=== PATIENT | male | born 1970 | race Caucasian/White ===

== ENCOUNTER → 2023-11-24 09:01 | Outpatient (BNVA) | payer OTHER, SELFPAY | PROVIDERS: Visit Provider Podiatrist Foot & Ankle Surgery | DX: M21.372 Foot drop, left foot (principal); M66.372 Spontaneous rupture of flexor tendons, left ankle and foot | CPT/HCPCS: 99204 ==

== ENCOUNTER 2023-12-13 11:00 | Outpatient (CLI) | payer OTHER, SELFPAY ==
--- NOTE | 2023-12-13 13:45 | MR_ITS ---
WS: [id number] MRI LEFT ANKLE WITHOUT CONTRAST. COMPARISON: None Multiplanar, multisequence imaging is performed without contrast. Mild narrowing of the tibiotalar joint space. Slight loss of the normal cartilage along the talar dom e. There is no osteochondral lesion. No marrow edema. Subchondral cystic changes are noted in the sub talar region of the calcaneus. Normal appearance of the talus. Achilles tendon and the plantar fascia are negative. There is no significant amount of increased sign al in the sinus Tarsi. Mild thinning of the cervical ligament within the sinus Tarsi. May be chronica lly or partially torn. There is no fibrosis. There is no fluid. Peroneal longus and brevis tendons normal position. There is a small amount of increased T2 signal in the distal peroneal brevis tendon but does appear to be intact. The tibialis posterior tendon and th e flexor digitorum longus and flexor hallucis longus muscles and tendons are negative. Abnormal appearance of the anterior tibialis tendon. There is marked thickening of the tendon beginni ng at about the level of the tibiotalar joint. Tendon measures 10 mm in diameter. Distal to the midfo ot the tendon is not identified as a normal separate structure. Similar appearance of the extensor camejo llucis longus tendon although the tendon is not as large as the anterior tibialis tendon. The extenso r digitorum longus tendon appears intact still. Deltoid ligament and the anterior talofibular ligament and the posterior talofibular ligaments are id entified. No tear is identified within the anterior talofibular ligament. There is a small loose body just posterior to the anterior talofibular ligament. MR/MR ankle LT wo con* [id number] IMPRESSION: 1. Markedly thickened and abnormal signal in the anterior tibialis tendon at t he level of the tibiotalar joint. The distal tendon cannot be traced to the fir st metatarsal or the cuneiform. Highly suspicious for complete tear. If not com plete tear high-grade tear. This is probably chronic as there is not a lot of f luid in the tendon sheath but the sheath is markedly thickened. 2. The extensor hallucis longus tendon is also abnormal and possibly torn also at the level of the tibiotalar joint. 3. No marrow edema or fractures. 4. Flexor tendons are negative. 5. Small caliber and thinning of the cervical ligament in the sinus Tarsi. No fluid or fibrosis.
--- NOTE | 2023-12-13 14:30 | MR_ITS ---
WS: [id number] MRI LEFT FOOT WITHOUT CONTRAST. COMPARISON: None Multiplanar, multisequence imaging is performed without contrast. No fracture or marrow edema. Bands of the Lisfranc ligament appear intact. There is no fluid. No wide angella of the Lisfranc articulation. Normal tarsal metatarsal alignment. Several hammertoe deformities are noted. Mild narrowing of the first metatarsophalangeal joint and tiny erosions. The distal anterior tibialis tendon is identified as it inserts onto the base of the first metatarsal . The proximal anterior tibial tendon over the midfoot demonstrates marked thickening as described in the MRI ankle. Visually the majority of the tendon is identified along its course. The marked thicke angella described on the MRI of the ankle may be severe tendinopathy and/or partial tear with fibrosis. The extensor hallucis longus distal to the midfoot becomes a more normal caliber at the level of the proximal first metatarsal with a normal-appearing insertion at the base of the first phalanx. MR/MR foot LT wo con* [id number] IMPRESSION: 1. No fractures or marrow edema. 2. Normal Lisfranc ligament. 3. Anterior tibialis tendon: The tendon is identified extending distally from the marked thickening described in the hindfoot on the recent MRI ankle. The di stal tendon appears to be intact and inserts at the base of the first metatarsa l. The changes within the anterior tibialis tendon consistent with marked tendi nopathy. Suspect high-grade tear with healing and fibrosis. 4. Extensor hallucis longus tendon: The distal tendon to the base of the first phalanx is identified in normal caliber. There is marked thickening more proxi lorraine of this tendon but appears to insert normally. Marked tendinopathy. Suspe ct prior high-grade tear with fibrosis and healing.
== END 2023-12-13 11:01 | disposition home or self-care (01) ==
LOC: RAD 11:00
PROVIDERS: PCP Family Medicine; Visit Provider Podiatrist Foot & Ankle Surgery
DX: M76.812 Anterior tibial syndrome, left leg (principal); M77.52 Other enthesopathy of left foot and ankle
CPT/HCPCS: 73718; 73721

== ENCOUNTER → 2023-12-14 10:00 | Outpatient (BNVA) | payer OTHER, SELFPAY | PROVIDERS: PCP Family Medicine; Visit Provider Podiatrist Foot & Ankle Surgery | DX: M21.372 Foot drop, left foot; M66.272 Spontaneous rupture of extensor tendons, left ankle and foot | CPT/HCPCS: 99214 ==

== ENCOUNTER 2025-03-21 13:19 | Outpatient (CLI) | payer OTHER, SELFPAY ==
--- NOTE | 2025-03-21 13:26 | USCV_ITS ---
Aaron Collins Age: 54 Gender: M : 1970 Exam Date: 03/21/2025 13:47 Ordering Phys: Eusebio Crum APRN, APRN Technologist: ARMANDO Exam Location: [facility] [place] Indication: Chest Discomfort BP: 138 / 74 HR: 81 Rhythm: Sinus Technical Quality: Adequate MEASUREMENTS (Male / Female) Normal Values 2D ECHO LV Diastolic Diameter PLAX 5.5 cm 4.2 - 5.9 / 3.9 - 5.3 cm IVS Diastolic Thickness 0.7 cm 0.6 - 1.0 / 0.6 - 0.9 cm IVS Systolic Thickness 0.8 cm LVPW Diastolic Thickness 1.0 cm 0.6 - 1.0 / 0.6 - 0.9 cm LVPW Systolic Thickness 0.8 cm LVOT Diameter 2.0 cm LV Ejection Fraction 2D Teich 36.5 % LV Ejection Fraction MOD 4C 61.3 % LV Ejection Fraction MOD 2C 50.3 % LV Ejection Fraction 2C AL 54.1 % LA Diameter 3.2 cm RA Systolic Volume 4C AL 26.8 ml RA Systolic Volume 4C MOD 26.1 ml LA Sys Volume AL 34.3 cm cubed LA Sys Volume Index AL 16.4 cm cubed/m squared Aorta at Sinotubular Diameter 2.3 cm M-MODE LA Ao Ratio MM 1.1 AV Cusp Separation MM 2.1 cm DOPPLER AV Area Cont Eq vti 2.6 cm squared AV Area Cont Eq pk 2.6 cm squared MV Peak Velocity 96.0 cm/s MV Area PHT 4.4 cm squared Mitral E to A Ratio 0.7 TV Peak Velocity 98.0 cm/s TR Peak Velocity 99.0 cm/s TR Peak Gradient 3.9 mmHg TV Peak E Velocity 58.0 cm/s PV Peak Velocity 99.0 cm/s FINDINGS Left Ventricle Mild diffuse hypokinesia left-ventricular ejection fraction of 50%.mild left ventricular hypertrophy. Abnormal septal motion consistent with conduction abnormality. Grade I/IV diastolic dysfunction (abnormal relaxation filling pattern), normal to mildly elevated filling pressures. Right Ventricle Normal right ventricular size and systolic function. Right Atrium Normal right atrial size. Left Atrium Normal left atrial size. IA Septum Normal appearance of the interatrial septum. Mitral Valve Trace mitral valve regurgitation. Aortic Valve No gross abnormalities noted . Tricuspid Valve No gross abnormalities noted Pulmonic Valve Pulmonic valve not well visualized. Pericardium No pericardial effusion. Aorta Normal aortic annulus size. IVC Inferior vena cava not visualized. CONCLUSIONS Mild diffuse hypokinesia left-ventricular ejection fraction of 50%.mild left ventricular hypertrophy. Abnormal septal motion consistent with conduction abnormality. Grade I/IV diastolic dysfunction (abnormal relaxation filling pattern), normal to mildly elevated filling pressures. Normal appearance of the interatrial septum. Trace mitral valve regurgitation. There is no pericardial effusion. There are no intracardiac masses. No similar previous studies are available for comparison Dr David Reese MD [facility] (Electronically Signed) Final Date: 23 March 2025 20:03 S
== END 2025-03-21 13:20 | disposition home or self-care (01) ==
LOC: RAD 13:20
PROVIDERS: PCP Family Medicine; Visit Provider Nurse Practitioner Family
DX: R07.9 Chest pain, unspecified (principal); I51.89 Other ill-defined heart diseases; I34.0 Nonrheumatic mitral (valve) insufficiency
CPT/HCPCS: 93306